=== PATIENT | male | born 1965 | race Asian ===

== ENCOUNTER 2017-12-25 13:30 | Outpatient (RCR) | payer OTHER | END 2018-01-23 | disposition home or self-care (01) | LOC: PTY 13:30 | DX: M25.561 Pain in right knee (principal); M25.562 Pain in left knee; G89.29 Other chronic pain; I10 Essential (primary) hypertension; M19.90 Unspecified osteoarthritis, unspecified site; F32.9 Major depressive disorder, single episode, unspecified; F41.9 Anxiety disorder, unspecified; J45.909 Unspecified asthma, uncomplicated; E66.01 Morbid (severe) obesity due to excess calories | CPT/HCPCS: 97110; 97140; 97161; G0283 ==